=== PATIENT | female | born 1980 | race Caucasian/White ===

== ENCOUNTER 2017-01-18 20:05 | Emergency (ER) | payer BC ==
[~2017-01-18] VITALS: Ht 170.2 cm; Wt 77.0 kg
[~2017-01-18 20:05] MED LIST: CIPRO500 MG PO; LOESTRIN FE PO; LORTAB5 PO; NAPROSYN500 MG PO; NO; ULTRAM50 MG OR
[2017-01-18 21:19] VITALS: BP 120/76
[2017-01-18] MEDS ORDERED: KEFLEX500 MG PO (22:13)
[2017-01-18] MEDS ORDERED: PERCOCET 5/325M1 TAB PO (22:13)
== END 2017-01-18 22:25 | disposition home or self-care (01) | DRG 603 ==
LOC: ED 20:05
DX: L02.31 Cutaneous abscess of buttock (principal)